=== PATIENT | female | born 1945 | race Caucasian/White ===

== ENCOUNTER 2016-12-15 16:10 | Inpatient (IN) | payer MEDICAID ==
[~2016-12-15] VITALS: Ht 154.9 cm; Wt 93.7 kg
--- NOTE | ~2016-12-15 | ECHO ---
Transthoracic Echocardiography Report (TTE) Demographics Patient Name CHANELLE CHAKRABORTY Date of Study 12/19/2016 L Patient Number [id number] Visit Number [id number] Date of 1945 Room Number G6327 Gender Female Number Age 71 year(s) Referring Life Assurance Representative Arnaud BURNETTT, Physician ROJELIO Katz Physician Interpreting Sil Azar Manager Sas Physician Supervising Ordering Christos Day MD, MD/MLP Physician Nurse Stress Hand Spray Operator Conclusions Contractility Score Summary Normal Left Ventricular contractility was noted. Summary Normal LV/RV size and systolic function. The estimated left ventricular ejection fraction is 65-70%. Mild concentric left ventricular hypertrophy. Diastolic assessment reveals Grade I diastolic dysfunction. No significant valvular abnormalities. Procedure Type of Study TTE procedure:2D Echocardiogram, M-Mode, Doppler , Color Doppler. Procedure Date Date: 12/19/2016 Start: 07:54 AM Study Location: Inpatient Portable Technical Quality: Adequate visualization Indications:CHF. Appropriate Use Criteria: 9 Patient Status: Routine HR: 85 bpm BP: 148/67 mmHg M-Mode/2D Measurements LV Diastolic Dimension: 3.32 cm LV Systolic Dimension: 1.72 cm LV Septum Diastolic: 1.32 cm LV PW Diastolic: 1.38 cm AO Root Dimension: 3.1 cm Cardiac Output: 6.16 l/min AV Cusp Separation: 1.4 cm RV Diastolic Dimension: 2.28 cm LA volume: 25 ml LVOT: 1.8 cm RV Base: 2.65 cm LVOT VTI: 28.5 cm RV Mid: 2.29 cm LV Stroke volume: 72.49 ml TDI-S': 23.5 cm/s Doppler Measurements AV Peak Velocity: 1.78 m/s MV Peak E-Wave: 0.78 m/s AV Peak Gradient: 12.67 mmHg MV Peak A-Wave: 1.11 m/s AV Mean Gradient: 8 mmHg MV E/A Ratio: 0.7 LVOT Peak Velocity: 1.3 m/s MV P1/2t: 85 msec PV Peak Velocity: 0.99 m/s E' Septal Velocity: 0.05 m/s PV Peak Gradient: 3.94 mmHg E' Lateral Velocity: 0.05 m/s A' Septal Velocity: 0.12 m/s A' Lateral Velocity: 0.18 m/s Findings Left Ventricle Mild concentric left ventricular hypertrophy. Diastolic assessment reveals Grade I diastolic dysfunction. Right Ventricle Normal right ventricle structure and function. Left Atrium Normal left atrial size. Right Atrium Normal right atrial size. IVC imaging is consistent with normal RA pressures. Mitral Valve Trivial mitral regurgitation by color Doppler. Aortic Valve The aortic valve is mildly sclerotic. Tricuspid Valve Normal tricuspid valve structure and function. Pulmonic Valve The pulmonic valve is not well visualized. Pericardial Effusion Trivial pericardial effusion. Pleural Effusion No evidence of pleural effusion. Contractility Score LV regional wall motion:(0-Non visualized 1-Normal 2-Hypokinesis 3-Akinesis 4-Dyskinesis 5-Aneurysm) Signature dtt: YO MELLO dtd: 12/19/16 0754 Physician Self Edit
--- NOTE | ~2016-12-15 | PUL ---
PATIENT'S NAME: CHANELLE CHAKRABORTY [facility] AGE: 71 Y [address] ROOM: [address] [address] LOCATION: GPCU ADMIT DATE: 12/15/2016 Pulmonary DISCHARGE DATE: 12/21/2016 FAMILY PHYSICIAN: HELENA PALOMO MD ATTENDING PHYSICIAN: Steven GUO NAME OF PROCEDURE: Nighttime Oximetry DATE OF PROCEDURE: December 20 to December 21, 2016 REASON FOR EXAM: Nocturnal hypoxemia RESULTS: The total recording time was 9 hours, 40 minutes, and 52 seconds, the total valid sampling time 9 hours, 35 minutes, 36 seconds. The highest pulse was 97 beats per minute, the lowest pulse was 71 beats per minute, and the mean pulse was 77 beats per minute. The highest SpO2 was 95%, lowest SpO2 was 68%, and the mean SpO2 was 83.6%. The time spent below 89% was 9 hours, 25 minutes, and 16 seconds which is 98.2%. The desaturation index was 7.3. PHYSICIAN INTERPRETATION: The patient meets Medicare criteria for nighttime oxygen category one. Thank you for allowing to participate in care of this patient. MD BLAISE MERINO/eryn /[id number] dtt: 01/01/17 1052 , Jose Alejandro Rincon. dtd: 12/26/16 1313
--- NOTE | ~2016-12-15 | ER ---
PATIENT'S NAME: CHANELLE CHAKRABORTY [facility] [place] AGE: 71 Y [address] ROOM: [place] [address] LOCATION: GPCU ADMIT DATE: 12/15/2016 ER/Outpatient Report DISCHARGE DATE: FAMILY PHYSICIAN: Mis Gore ATTENDING PHYSICIAN: Steven ARIAS CHIEF COMPLAINT: Possible pneumonia. HISTORY OF PRESENT ILLNESS: Ms Chakraborty intermittently is homeless. She states that she intermittently takes her medications for what appears to be depression and seizure disorder as well as hypothyroidism and hypertension. She has no pulmonary diagnoses that she is aware of. She notes that she has been coughing over the last week and just has really not been feeling well. Her friend saw her today and thought she looked worse than usual and brought her in. Other than feeling short of breath, she denies any other issues. Her legs are swollen, but they routinely do swell. No other issues from that standpoint. No other specific complaints. She has not really tried anything to make this better. She has not been taking her heart failure medications. No other issues for her. PAST MEDICAL HISTORY: As documented on the record and have been reviewed by me. SOCIAL HISTORY: As documented on the record and have been reviewed by me. MEDICATIONS: As documented on the record and have been reviewed by me. ALLERGIES: DOCUMENTED ON THE RECORD AND HAVE BEEN REVIEWED BY ME. REVIEW OF SYSTEMS: All systems were reviewed and negative except as noted in the HPI. PHYSICAL EXAMINATION: VITAL SIGNS: Blood pressure 194/80, pulse 116, respiratory rate is 20, temperature 99.2, SpO2 is 72% on room air, pain is 0/10. GENERAL: Age-appropriate female, in no obvious pain or distress who appears tired on the exam table. NEUROLOGIC: The patient is awake, she follows commands in all extremities. She does not have a clear speech, but it is not consistent with dysarthria, PATIENT'S NAME: CHANELLE CHAKRABORTY [facility] [place] AGE: 71 Y [address] ROOM: [place] [address] LOCATION: GPCU ADMIT DATE: 12/15/2016 ER/Outpatient Report DISCHARGE DATE: FAMILY PHYSICIAN: Mis Gore ATTENDING PHYSICIAN: Steven ARIAS friend notes her speech seems to be her normal. HEENT: Grossly normocephalic and atraumatic. Eyes are PERRL. Oropharynx is clear. No erythema or exudates. NECK: Supple. Trachea is midline. CHEST: Heart is tachycardic with no obvious murmurs. LUNGS: Crackles at the bases, but good air entry bilateral and diffuse wheezes throughout. ABDOMEN: Soft, nontender, and nondistended. No rebound or guarding. EXTREMITIES: Warm and well-perfused. No deformities. There is 2+ edema of the lower extremities to the knees. BACK: Normal to inspection and palpation. No CVA tenderness. SKIN: Very dirty, but dry and appears to be intact with no significant rashes. LABORATORY DATA AND X-RAYS: Chest x-ray with a small right pleural effusion. No clear infiltrates per my review. Radiology opinion pending. CT chest, PE protocol. Does not reveal any significant findings. Bilateral basilar infiltrates versus atelectasis. Blood gas; pH 7.35, pCO2 is 55, pO2 is 56 on 4 L. Lactate 0.8. Procalcitonin 0.07. CMS with no electrolyte abnormalities. Glucose 124, creatinine 0.8. GFR greater than 60. LFTs grossly unremarkable other than an alkaline phosphatase of 174, CK-MB, and troponin below detectable threshold. CRP is 12.6, free T4 and TSH 1.4 and 0.844 respectively. ProBNP 492. D-dimer is 1, white count is 14.2, hemoglobin 13.6, and platelets 260, INR is 1. EKG: Appears to be sinus tachycardia with left axis deviation, no acute ischemia. IMPRESSION: 1. Likely chronic obstructive pulmonary disease exacerbation. 2. Poor medication compliance. 3. At-risk living condition. EMERGENCY DEPARTMENT COURSE: The patient was seen and evaluated as above. Chief concern is for possible pneumonia, PE, or ACS based on current presentation. CHF was also evaluated. With her labs and exam as they are, with a negative chest CT, I think COPD exacerbation is most likely at this time. She did receive a DuoNeb, which helped some. Heart rates were downtrending. Blood pressure improved without any significant interventions. She was given Lasix, levofloxacin, and Solu- Medrol to help with those. She will be admitted to the Hospitalist Service for further evaluation and treatment of her severe hypoxia. A 4 L nasal cannula brought the patient to 90% plus or minus 1 or 2 percentage points at any given time. Dr. Arias is aware and will admit the patient. PATIENT'S NAME: CHANELLE CHAKRABORTY [facility] [place] AGE: 71 Y [address] ROOM: [place] [address] LOCATION: [facility] ADMIT DATE: 12/15/2016 ER/Outpatient Report DISCHARGE DATE: FAMILY PHYSICIAN: Mis Gore ATTENDING PHYSICIAN: Steven ARIAS MD DONAL CANSECO/nora /[id number] d: 12/16/16 0748 t: 12/16/16 0814, OUTPATIENT REPORT
--- NOTE | ~2016-12-15 | HP ---
PATIENT'S NAME: MYLENE [facility] AGE: 71 Y [address] ROOM: [place] [address] LOCATION: GPCU ADMIT DATE: 12/15/2016 History & Physical DISCHARGE DATE: FAMILY PHYSICIAN: Mis Gore ATTENDING PHYSICIAN: Steven GUO DATE OF SERVICE: CHIEF COMPLAINT: Shortness of breath. HISTORY OF PRESENT ILLNESS: The patient is a 71-year-old female with past medical history of CHF, seizure, hypertension, and tobacco use, who presents here with shortness of breath. The patient reports that for the past week or so she has been experiencing productive cough with yellow sputum with increased production of sputum, wheezing, and shortness of breath. The patient also reports of worsening lower extremity edema and dyspnea on exertion. The patient reports that she has a history of heart failure, but does not know what type it is. The patient also reports that she has subjective fever and chills. The patient denies chest pain, nausea, vomiting, abdominal pain, diarrhea, or constipation. The patient reports she lives by herself, does not have any connection with her family members and also reports that at times she lives on the street as a homeless. The patient reports of history of seizure since she was age 12. She reports that she is on disability due to her seizures. She does not remember her last seizure. MEDICAL HISTORY: 1. Tobacco use. 2. COPD. 3. Hypertension. 4. Seizure. 5. CHF. 6. Depression. 7. Obesity. SURGICAL HISTORY: 1. Hysterectomy. 2. Appendectomy. 3. Cholecystectomy. FAMILY HISTORY: Both parents had diabetes mellitus. SOCIAL HISTORY: PATIENT'S NAME: MYLENE [facility] AGE: 71 Y [address] ROOM: [address] [address] LOCATION: GPCU ADMIT DATE: 12/15/2016 History & Physical DISCHARGE DATE: FAMILY PHYSICIAN: Mis Gore ATTENDING PHYSICIAN: Steven GUO Lives alone. She is disabled. She has a long history of smoking and denies drinking. MEDICATIONS: The patient has a medication list with, 1. Phenobarbital. 2. Dilantin. 3. Lasix. 4. Synthroid. 5. Omeprazole. 6. Benazepril. However, there is no dosage. REVIEW OF SYSTEMS: All systems have been reviewed and are negative except for what I mentioned in the HPI. PHYSICAL EXAMINATION: VITAL SIGNS: Afebrile. Blood pressure 168/76, respiratory rate 20, heart rate 76, and saturating 93% on 4 L. GENERAL APPEARANCE: The patient is unkempt with significant odor. The patient is obese, lying on the bed, in no acute distress. HEAD: Normocephalic, atraumatic. EYES: Extraocular muscles intact. NECK: Positive JVD. NOSE: No nasal discharge. EARS: No ear discharge. CHEST: Bilateral rales up to mid lung and also mild expiratory wheezing. No rhonchi heard. HEART: Regular rate and rhythm. No murmur, rubs, or gallops. ABDOMEN: Soft, nontender, and nondistended. Bowel sounds present. SKIN: Warm to touch. EXTREMITIES: +1 pitting edema. MUSCULOSKELETAL: No joint effusion. Range of motion intact. SCIENCE CENTER DISPLAY BUILDER: Alert and oriented x3. Motor and sensory grossly intact. LABORATORY DATA: A pH 7.35, pCO2 55, and PO2 of 56. Sodium 142, potassium 4, and creatinine 0.8. White blood cell count of 14.2, hemoglobin 13.6, and platelets 260. D-dimer is positive. Chest x-ray shows cardiomegaly with vascular prominence. PATIENT'S NAME: CHANELLE CHAKRABORTY [facility] AGE: 71 Y [address] ROOM: [place] [address] [facility] ADMIT DATE: 12/15/2016 History & Physical DISCHARGE DATE: FAMILY PHYSICIAN: Mis Gore ATTENDING PHYSICIAN: Steven GUO CT chest and PE: Preliminary report per emergency department. No PE. EKG shows sinus rhythm, left axis deviation with possible right atrial dilation. ASSESSMENT AND PLAN: 1. Acute hypoxic respiratory failure. The patient is a 71-year-old female with past medical history of tobacco use, congestive heart failure, obesity, and hypertension, who presents here with shortness of breath. On initial evaluation, the patient was found to have new oxygen demand. The patient's initial oxygenation in the ED with O2 saturation in the 70s on room air. Initial ABG shows PO2 of 56, pH of 7.35, and pCO2 of 55. Chest x-ray shows vascular prominence and cardiomegaly. On physical examination, the patient was found to have rales and also expiratory wheezing. The patient also have JVD and pitting edema. A D-dimer is positive; however, CT PE prelim report is negative for PE. Etiology most likely secondary to chronic obstructive pulmonary disease exacerbation and decompensated heart failure. We will start the patient on DuoNeb, steroids, and Levaquin. We will also start the patient on Lasix 40 mg IV t.i.d., strict I's and O's, and daily weight with fluid restriction. We will also start the patient on low-sodium diet. We will also acquire echocardiogram to further evaluate heart structure. 2. Acute chronic obstructive pulmonary disease exacerbation. See problem #1. 3. Diastolic heart failure. EF not known. We do not have current echocardiogram. For treatment, please see problem #1. 4. Depression. The patient reports a history of depression and suicidal thoughts in the past. Denies attempts. We will have Psychiatry consult. 5. Tobacco use. Discussed with the patient about tobacco cessation, spent greater than 3 minutes, but less than 10 minutes. 6. Seizure disorder. The patient is currently taking Dilantin and phenobarbital, does not remember the last time she had seizure. We will have seizure precaution and have Ativan p.r.n. Currently, we do not have the patient's medications, we will acquire Dilantin and phenobarbital levels. As soon as we get the patient's medications, we will restart the patient's medication. 7. Obesity, ongoing. 8. Gastrointestinal prophylaxis, on PPI. 9. Deep venous thrombosis prophylaxis, on Lovenox. 10. Problem with homelessness. We will consult Social Work. I have personally reviewed the patient's medical record including but not limited to, blood work and radiology report. Total time spent with the patient is greater than 70 minutes, more than 50% of time spent in direct patient care and patient consultation. Case was reviewed with the patient and PATIENT'S NAME: CHANELLE CHAKRABORTY [facility] AGE: 71 Y [address] ROOM: [place] [address] LOCATION: GPCU ADMIT DATE: 12/15/2016 History & Physical DISCHARGE DATE: FAMILY PHYSICIAN: Mis Gore ATTENDING PHYSICIAN: Steven GUO nursing staff. Questions were answered to the patient's satisfaction. The patient's code status on admission, full code. MD JORDAN NAVARRO/nora /[id number] D: [id number] T: [id number] HISTORY & PHYSICAL
--- NOTE | ~2016-12-15 | DS ---
PATIENT'S NAME: MYLENE [facility] AGE: 71 Y [address] ROOM: [place] [address] LOCATION: GPCU ADMIT DATE: 12/15/2016 Discharge Summary DISCHARGE DATE: 12/21/2016 FAMILY PHYSICIAN: HELENA PALOMO MD ATTENDING PHYSICIAN: Steven GUO PRIMARY DIAGNOSES: 1. Wvwin-ti-uvibvvy hypoxic and hypercapnic respiratory failure. 2. Chronic obstructive pulmonary disease exacerbation. 3. Ydphh-jg-cqcvuwx diastolic congestive heart failure. 4. Pulmonary nodules. 5. Adrenal nodules. 6. Essential hypertension. 7. Seizure disorder. 8. Generalized weakness. 9. Moderate protein-calorie malnutrition. OPERATIONS/PROCEDURES: CT scan per PE protocol performed 12/15/2016 demonstrated no PE, but pulmonary nodules indeterminate were noted. Bilateral adrenal nodules also noted. Recommend followup CT in 3 months. HISTORY OF PRESENTING ILLNESS/REASON FOR ADMISSION: Please refer to the H and P dictated 12/15/2016. HOSPITAL COURSE: The patient was admitted to the hospital as noted above with a presumptive diagnosis of vxvww-uh-odnyfam hypoxic hypercapnic respiratory failure. Imaging studies revealed pulmonary nodules as outlined above. Clinical followup and repeat CT scan were recommended. She received aggressive supportive care and supplemental oxygen. She received attention to pulmonary hygiene including nebulizers. She was placed on broad- spectrum antibiotic therapy with levofloxacin. Her cultures remained negative over the course of her hospital stay. Her clinical condition slowly improved. Symptomatically, she was essentially back at her baseline. She continued to require supplemental oxygen; however, 2 L at rest and 2 L with exertion. Respiratory Therapy did qualify her for oxygen. Her home situation was suboptimal. It was noted that she lived in a trailer with virtually no plumbing and limited electricity. Social Work was involved in assisting with coordination of care and discharge planning. Adult Protective Services were contacted by Care Management in anticipation of her discharge home. After discussing discharge plans with the patient, she agreed to go home with a friend who is also a neighbor. The home environment there PATIENT'S NAME: MYLENE [facility] AGE: 71 Y [address] ROOM: [place] [address] LOCATION: GPCU ADMIT DATE: 12/15/2016 Discharge Summary DISCHARGE DATE: 12/21/2016 FAMILY PHYSICIAN: HELENA PALOMO MD ATTENDING PHYSICIAN: Steven GUO had full amenities including plumbing and electricity. It was decided that she would need home oxygen as outlined above. She was counseled extensively to quit smoking and remained in the contemplative phase. She was instructed strictly no smoking with the oxygen device in place. DISCHARGE INSTRUCTIONS: 1. Diet: Cardiac prudent as tolerated, 1500 mL per day, fluid restriction. 2. Activity: As tolerated, ambulate only with a walker, and supplemental oxygen. MEDICATIONS: 1. Levofloxacin 750 mg p.o. daily x5 more days. 2. Ilotycin ointment applied to both eyes daily. 3. Lexapro 10 mg p.o. daily. 4. Lasix 40 mg p.o. daily. 5. Levothyroxine 75 mcg p.o. daily. 6. Benazepril 20 mg p.o. daily. 7. Nicotine patch 21 mg apply and change daily, do not smoke. 8. Nystatin powder applied topically b.i.d. x5 more days. 9. Omeprazole 20 mg p.o. daily. 10. Phenobarbital 32.4 mg p.o. b.i.d. and 64.8 mg at h.s. 11. Dilantin 100 mg p.o. b.i.d. and 200 mg p.o. q.h.s. 12. MiraLAX 17 g p.o. daily. 13. Prednisone tapering course 20 mg p.o. daily x2 more days then 10 mg p.o. daily then 5 mg p.o. daily each x3 days. 14. DuoNeb per nebulizer 4 times a day. 15. VESIcare 10 mg p.o. q.h.s. FOLLOW UP: She will follow up with her primary care provider, Helena Palomo, in 5-7 days. She will have repeat CT scan of the chest to address pulmonary nodules and adrenal nodules in 3 months. CONDITION ON DISCHARGE: Fair. Total time spent on discharge process was 45 minutes. MD BRITTANEY ODELL/nora /[id number] d: 12/22/16 0559 t: 01/04/17 1812, DISCHARGE SUMMARY
[2016-12-15 16:52] LABS: BICARBONATE 30.4 mmol/L (18.0-23.0); LACTATE 0.8 mEq/L (0.50-1.60); PCO2 55 mmHg (35-45); PO2 56 mmHg (80-90)
[2016-12-15 16:58] LABS: BASOPHIL % 0.2 %; EOSINOPHIL % 0.3 %; HEMATOCRIT 42.8 % (33.0-46.0); HEMOGLOBIN 13.6 g/dL (10.0-15.0); IMMATURE GRANULOCYTE # 0.1 K/uL (0.0-0.3); IMMATURE GRANULOCYTE % 0.4 %; LYMPHOCYTE # 1.4 K/uL (0.8-4.0); LYMPHOCYTE % 9.5 %; MCH 28.1 pg (27.0-34.0); MCHC 31.8 gm/dL (32.0-36.5); MCV 88.4 fl (83.0-98.0); MONOCYTE # 1.3 K/uL (0.0-1.0); MPV 9.5 fl (9.4-12.4); NEUTROPHIL # (ANC) 11.5 K/uL (1.8-7.8); NEUTROPHIL % 80.6 %; NRBC % 0 /100WBC (0-0.00); PLATELET COUNT 260 K/uL (150-450); RBC 4.84 M/uL (3.50-5.50); RDW-CV 14.6 % (11.9-14.6); WBC 14.2 K/uL (4.0-11.0)
[2016-12-15 17:09] LABS: INR - (THERAPEUTIC) 1.01 (0.92-1.07); PROTIME 10.6 SECONDS (9.8-11.4); PTT 28 SECONDS (25-32)
[2016-12-15 17:16] LABS: ALBUMIN 2.8 gm/dL (3.5-5.0); ALK PHOS 174 IU/L (33-138); ALT 64 IU/L (12-78); AST 39 IU/L (10-40); BLOOD UREA NITROGEN 16 mg/dL (6-24); CALCIUM 8.4 mg/dL (8.5-10.5); CHLORIDE 108 mMol/L (96-110); CO2 27 mMol/L (22-32); CREATININE 0.8 mg/dL (0.5-1.1); ESTIMATED GFR (MDRD EQUATION) > 60; SODIUM 142 mMol/L (135-145); TOTAL BILIRUBIN 0.4 mg/dL (0.0-1.5); TOTAL PROTEIN 7.2 g/dL (6.0-8.4)
[2016-12-15] MEDS ORDERED: PHENOBARBITAL32.4 MG PO (21:13)
[2016-12-15] MEDS ORDERED: LASIX40 MG PO (21:13)
[2016-12-15] MEDS ORDERED: DILANTIN100 MG PO (21:13)
[2016-12-15] MEDS ORDERED: LEVOTHROID(SYN75 MCG PO (21:14)
[2016-12-15] MEDS ORDERED: LOTENSIN20 MG PO (21:14)
[2016-12-15] MEDS ORDERED: VESICARE10 MG PO (21:14)
[2016-12-15] MEDS ORDERED: PRILOSEC20 MG PO (21:14)
--- NOTE | 2016-12-16 02:24 | NUR ---
PATIENT ARRIVES FROM THE ER TO PCU AT 1945. PATIENT IS ALERT AND ORIENTED AND TALKATIVE. O2 PER NC IN PLACE AT 5LPM. BRIDGE CARPENTER IS APPLIED. PATIENT IS VERY UNCLEAN. SHE IS PLEASANT AND COOPERATIVE. IT IS REPORTED THAT THE PATIENT HAS HAD A COUGH OVER THE LAST WEEK WITH WORSENING SHORTNESS OF AIR. SHE WAS TAKEN TO THE ER WITH FAMILY MEMBERS. ALATORRE WAS PLACED AFTER ARRIVAL TO THE FLOOR. PATIENT VERBALIZES CURRENT DEPRESSION BUT REPORTS SHE DOES NOT WANT A PLANE AND WOULD BE TOO CHICKEN.
--- NOTE | 2016-12-16 05:42 | NUR ---
Significant Event: PATIENT ADMITTED THORUGH THE ER FOR HYPOXIA. PATIENT ADMITTED WITH PNEUMONIA. SHE IS CURRENTLY HOMELESS. STOPPED TAKING LASIX A WEEK AGO. SHOWERED LAST PM. ALATORRE PLACED FOR ACCURATE I&O, SEIZURE PREAUTIONS. PATIENT IS ALERT AND ORIENTED. BILATERAL GROINS ARE EXCORIATED. NYSTATIN BEING APPLIED. ORAL THRUSH BEING TREATED WELL. Follow up:
[2016-12-16] MEDS ORDERED: PHENOBARBITAL32.4 MG PO (11:24)
[2016-12-16] MEDS ORDERED: DILANTIN100 MG PO (11:26)
[2016-12-16] MEDS ORDERED: LEXAPRO20 MG PO (11:27)
[2016-12-16] MEDS ORDERED: ILOTYCIN1 GM OPHTH (11:28)
--- NOTE | 2016-12-16 18:49 | NUR ---
Significant Event: A/O X 3. SOME ODD REMARKS AT TIMES. AFEBRILE. HR SR IN 60-80'S. SBP 125-147. SATS 91% ON 3 LPM, NC. REPOSITIONS SELF. GOOD APPETITE. LASIX GIVEN WITH GOOD URINE OUTPUT. Follow up: CONT. PLAN OF CARES.
[2016-12-17 03:17] LABS: BASOPHIL % 0.2 %; EOSINOPHIL % 0.1 %; HEMATOCRIT 41.1 % (33.0-46.0); HEMOGLOBIN 13.1 g/dL (10.0-15.0); IMMATURE GRANULOCYTE # 0.1 K/uL (0.0-0.3); IMMATURE GRANULOCYTE % 0.6 %; LYMPHOCYTE # 1.3 K/uL (0.8-4.0); LYMPHOCYTE % 10.2 %; MCH 28.1 pg (27.0-34.0); MCHC 31.9 gm/dL (32.0-36.5); MCV 88.2 fl (83.0-98.0); MONOCYTE # 0.6 K/uL (0.0-1.0); MONOCYTE % 4.9 %; MPV 9.8 fl (9.4-12.4); NEUTROPHIL # (ANC) 10.5 K/uL (1.8-7.8); NRBC % 0.2 /100WBC (0-0.00); PLATELET COUNT 286 K/uL (150-450); RBC 4.66 M/uL (3.50-5.50); RDW-CV 14.5 % (11.9-14.6); WBC 12.5 K/uL (4.0-11.0)
[2016-12-17 03:31] LABS: ANION GAP 11.5 (10.0-19.0); CALCIUM 8.4 mg/dL (8.5-10.5); POTASSIUM 4.5 mMol/L (3.7-5.1)
--- NOTE | 2016-12-17 05:50 | NUR ---
Significant Event:VSS.3L NC. PT DENIES PAIN. PT STOOD AT BEDSIDE. ALATORRE INTACT. COOPERATIVE WITH CARES. PT STATES SHE IS WORRIED ABOUT HER DOG. SLEPT INTERMITENTLY THIS SHIFT. Follow up:CONT TO MONITOR
--- NOTE | 2016-12-17 07:27 | NUR ---
PT IS A SMOKER, WITH PNEUMONIA, DYSPNEA, FOUND ON ROOM AIR SAT 80 REPLACED ON 2LPM. WE WILL CONTINUE Q4 AEROSOLS. PT'S LIVING ARRANGEMENTS EQUALS A MARGINAL DETENTION WITHOUT WATER, HEATER, ELECTRICITY. DR FELICE LOWE MGMT NOTIFIED
--- NOTE | 2016-12-17 16:48 | NUR ---
Significant Event: A/O X 3. PT. ABLE TO SEE HER DOG TODAY AND WAS VERY HAPPY AND SATISFIED THAT HE WAS OK. DR. VÁSQUEZ (PSYCHIATRIST) SEEN TODAY. NOTE WRITTEN. AFEBRILE. HR SR IN 80'S. SBP 130-140'S. SATS 94% ON 3 LPM. DESATS TO 80'S ON ROOM AIR. CONT. ON SOLUMEDROL AND ANTIX. UP IN CHAIR WITH ONE ASSIST TODAY. PT/OT TO START EVALUATION/TREAT. WEAN OFF 02 TO KEEP SATS 88-95%. Follow up : DILANTIN LEVEL AND OTHER LABS IN A.M. CM NEEDS TO WORK ON PLACEMENT. CONT. TO MONITER RESP. STATUS.
--- NOTE | 2016-12-18 04:35 | NUR ---
Significant Event: VSS.2-4L NC. coarse and wheezy. productive cough. Pt preferred to sleep in chair. Delgadillo intact. Pt up to bathroom 1a. Pt eager to return home. Pt denies pain. Follow up:cont w/plan of care
[2016-12-18 06:04] LABS: BASOPHIL % 0.3 %; EOSINOPHIL % 0.2 %; HEMATOCRIT 43.5 % (33.0-46.0); HEMOGLOBIN 13.6 g/dL (10.0-15.0); IMMATURE GRANULOCYTE # 0.1 K/uL (0.0-0.3); IMMATURE GRANULOCYTE % 0.9 %; LYMPHOCYTE # 1.5 K/uL (0.8-4.0); LYMPHOCYTE % 13.1 %; MCH 27.9 pg (27.0-34.0); MCHC 31.3 gm/dL (32.0-36.5); MCV 89.3 fl (83.0-98.0); MONOCYTE # 0.7 K/uL (0.0-1.0); MONOCYTE % 5.8 %; MPV 9.2 fl (9.4-12.4); NEUTROPHIL # (ANC) 9.2 K/uL (1.8-7.8); NEUTROPHIL % 79.7 %; NRBC % 0 /100WBC (0-0.00); PLATELET COUNT 307 K/uL (150-450); RBC 4.87 M/uL (3.50-5.50); RDW-CV 14.6 % (11.9-14.6); WBC 11.5 K/uL (4.0-11.0)
[2016-12-18 06:20] LABS: ANION GAP 10.6 (10.0-19.0); BLOOD UREA NITROGEN 26 mg/dL (6-24); CALCIUM 8.3 mg/dL (8.5-10.5); CHLORIDE 103 mMol/L (96-110); CO2 30 mMol/L (22-32); CREATININE 0.8 mg/dL (0.5-1.1); ESTIMATED GFR (MDRD EQUATION) > 60; POTASSIUM 4.6 mMol/L (3.7-5.1); SODIUM 139 mMol/L (135-145)
--- NOTE | 2016-12-18 17:45 | NUR ---
Significant Event: A/O X 3. MAKES ODD COMMENTS AT TIMES. AFEBRILE. HR SR IN 70-90'S. SBP 130-150. SATS 91-95% ON 2 LPM NC. MOUTH BREATHER AT REST AND DESATS 86%. LANDRY LEWIS'D. VOIDED X 1. SMALL BM. DECREASED SOLU-MEDROL DOSAGE. Follow up: CONT. TO MONITER RESP. STATUS.
[2016-12-19 03:58] LABS: BASOPHIL # 0.1 K/uL (0.0-0.2); BASOPHIL % 0.4 %; EOSINOPHIL % 0.1 %; HEMATOCRIT 45.2 % (33.0-46.0); HEMOGLOBIN 14.1 g/dL (10.0-15.0); IMMATURE GRANULOCYTE # 0.2 K/uL (0.0-0.3); IMMATURE GRANULOCYTE % 1.3 %; LYMPHOCYTE # 1.8 K/uL (0.8-4.0); LYMPHOCYTE % 14.8 %; MCH 27.9 pg (27.0-34.0); MCHC 31.2 gm/dL (32.0-36.5); MCV 89.5 fl (83.0-98.0); MONOCYTE # 0.6 K/uL (0.0-1.0); MPV 9.3 fl (9.4-12.4); NEUTROPHIL # (ANC) 9.6 K/uL (1.8-7.8); NEUTROPHIL % 78.4 %; NRBC % 0 /100WBC (0-0.00); PLATELET COUNT 300 K/uL (150-450); RBC 5.05 M/uL (3.50-5.50); RDW-CV 14.6 % (11.9-14.6); WBC 12.2 K/uL (4.0-11.0)
--- NOTE | 2016-12-19 04:59 | NUR ---
Significant Event: A&O.COOPERATIVE WITH CARES. VSS.2L NC. PT DENIES PAIN, SLEPT IN RECLINER. DECREASE IN IV SOLUMEDROL. ORAL LASIX. UP TO BATHROOM SBA. Follow up: CONT TO MONITOR, PLACEMENT
--- NOTE | 2016-12-19 13:00 | NUR ---
Introduced self and role of care management to pt. She states she has her own trailer house but she states it's not really livable and [facility] has been involved. She states her neighbor at this time is taking care of her dog. She states Katiana with [place] [id number] has been working with her to get low income apartment here in [place] or [place]. I asked about AA she states they were really not any help to her. I did tell her I called [employer] and that she is approved for [facility] (cleaning, caregivers, laundry, food prep, etc) also she already gets heating and enery assistance from [facility] as well. Pt states the pipes broke several years ago so does not have running water she does spit baths, her furnace does not work and only a few outlets and with that she uses electric heater and a fan, she gets foods stamps, she does drive and gets her meds filled and see's DR Conde. I did discuss safe discharge plans and that home is not a safe plan. I mentioned [facility], long-term, or skilled care to get back on her feet, but really she is independent at this time so far. I then asked what her plan was for discharge and she was hoping to stay with her friend Verena [address] phone [phone]. I asked about long-term and refuses because wants her dog and states no to [facility] because of that as well and has been there before. She states she has been at several other nursing homes in [place] and [facility] being the last. I did call and inquired at with [facility] but do not think she will qualify. I asked if it would be ok to give her a call and she stated yes. I then called called Verena and discussed the situation. She does have her dog and she is aware about her living environment and she stays with her on and off and one time for about 3 months. She also has been helping pt and is aware of Katiana at [place] [id number] and [facility] as well. Per Verena she is also good at taking her meds and caring for herself it is just her living arangement. I did tell her pt stated something about staying with her and yes Verena states she can stay with her until something comes up. I asked about [facility] and coming in her home and she states that would be fine as well. They are aware of the food pantry and [employer] [facility] because pt does go there for assistance as well. I did make referral to [facility] and they will see if they can see her this week if not [facility], Annie has the information as well. I did update pt along with Dr Acharya about friend letting her stay there. I then got a call from Katiana and she has been helping her out with everything and she seems to trust her. She is number 6 on the housing list and will give them a call again and also can be in touch with Verena as well. She is aware she does not have a phone either and will work with pt on this as well. I will most likely make a APS referral on dc to let [facility] know what the plan is.
--- NOTE | 2016-12-19 15:21 | NUR ---
A&O. SBA. SBP 130'S-150'S. HR NS 70'S-90'S. AFEBRILE. 1-2L NC. NO C/O PAIN. LS CORSE. CSM WNL. VOIDS PER BR. SMALL HARD BM TODAY. [place]. 1500 FLUID RESTRICTION. SKIN IS UNCLEAN REF HYGINE CARES.PLAN IS WORKING ON PLACEMENT?
--- NOTE | 2016-12-20 04:28 | NUR ---
A&O. SBA with GB/W. VSS. Afebrile. 2 ltr O2 over night. Slept in chair for several hours before wanting to move to the bed. Wears brief. 1500ml fluid restriction- had 360 in this shift. SOLOMON. Family brought her dog in to visit [facility]. No c/o pain. Care management on case.
--- NOTE | 2016-12-20 12:02 | NUR ---
I did update nursing Deysi that pt will be going home with a friend and staying with her. I spoke with pt and she still is planning on staying with Verena and I mentioned the [facility] for continued therapy and nursing and she is ok with this. [facility] can not get into the home till the weekend. I will then plan on setting it up with [facility]. APS called with update.
--- NOTE | 2016-12-20 14:22 | NUR ---
A-SCREENED D/T LOS HT: 61 IN. WT: 94.2 KG. IBW: 48 KG. BMI: 39.3 LABS REVIEWED: BUN/CORE MOUNTER 26/0.8, ALB 2.8, CRP 12.60 MEDS: MIRALAX, PRN BOWEL MEDS, LASIX, PHENOBARBITAL, DILANTIN, SANCTURA, LEVAQUIN, PROTONIX, ZOFRAN, DELTASONE DIET RX: CARDIAC/2-3 GM NA. PO INTAKE 75-100% EST NUTR NEEDS: [id number] KCALS (15-20 KCALS/KG) 72-96 GMP PROTEIN (1.5-2.0 GM/KG IBW) 1 ML FLUID/KCAL D-NOT AT NUTRITION RISK; NO NUTRITION DX IDENTIFIED I-CONTINUE W/CURRENT DIET RX M/E-WILL ASSIST NEEDED
--- NOTE | 2016-12-20 18:34 | NUR ---
A&O. [place]. SLOW TO RESPOND. SBA. HTN 110'S-160'S. HR 70'S. AFEBRIAL. 1-2L02NC. NO C/O PAIN. LS DIM. BS ACTIVE. SM BM 12/19. PLAN IS TREND OX TONIGHT THEN HOME TOMORROW. INT IV ATBX SWITCH TO PO? PRED TAPER. HOME TO FRIENDS HOUSE WHEN DC
--- NOTE | 2016-12-21 05:06 | NUR ---
Patient A/Ox3. VSS on 1L. Up standby assist with gaitbelt. Lungs course, SOB with activity. Trend ox done last night. Bowel sounds present, SM BM this shift. IV to Rt forearm saline locked. No complaints. Incont. of urine. Wants to go home today to get her dog.
--- NOTE | 2016-12-21 11:11 | NUR ---
[facility] notified yesterday and will note but not enough to follow up on with the plan to stay with friend.
--- NOTE | 2016-12-21 11:50 | NUR ---
Introduced self and purpose of heart healthy education and care transitions. Calendar given, information reviewed, verbalized understanding.
--- NOTE | 2016-12-21 14:36 | NUR ---
I did call pt's friend Verena and she states she is aware pt maybe ready to come home today with her. SHe is fine with [facility] and explained it would be thru [facility]. I did tell her she will need to be on oxygen and she understands and is fine with this. I told her she would have a concentrator and also a portable as well. I told her nursing would let her know when she is being discharged.
--- NOTE | 2016-12-21 15:41 | NUR ---
I spoke with pt again today and explained Verena is still planning on her staying with her. She was wondering about a walker and I told her we could give her a script but do not know if she needs it because she was carrying out of the bathroom but told her she can take the script to any dme facility. She stated she may even be able to find hers. I told her no smoking and she stated Verena does but she smokes outside and I explained they will need to continue to do this. I faxed dc orders to [facility]. Will continue to follow.
--- NOTE | 2016-12-21 16:44 | NUR ---
Significant Event: Alert and oriented X 3. O2 by nasal cannula at 1.5 L. SBP 110's, 120's and 130's. HR 70's and 80's. Peripheral IV to right wrist saline locked. Patient's dismissal paperwork done, waiting for transportation. Will be going home with a friend and staying with her. Pleasant and coopertative with cares. Follow up:
[2016-12-21] MEDS ORDERED: MYCOLOG OINTMEN15 GM TOP (17:57)
[2016-12-21] MEDS ORDERED: NICODERM CQ1 EAC1 TRANS (18:00)
[2016-12-21] MEDS ORDERED: MIRALAX17 GM PO (18:02)
[2016-12-21] MEDS ORDERED: DELTASONE20 MG PO (18:03)
[2016-12-21] MEDS ORDERED: DUONEB INH (18:06)
[2016-12-21] MEDS ORDERED: LEVAQUIN750 MG PO (18:07)
--- NOTE | 2016-12-21 20:52 | NUR ---
Pt dismissed from [facility] @ 2019. Was transported from facility by private car. Patient was given prescription med list and home O2 equipment. Pt was informed and given a written reminder for follow up appointment at [facility]. IV was dc'd and vitals were done. BP 178/95, 98.3 temp, 89 hr, 98% 1L, 16 resps.
--- NOTE | 2016-12-21 22:27 | NUR ---
At 2114: Spoke with Patient's friend (caregiver) on the phone and informed the friend to make sure the home oxygen settings are on 2L night and day. Patient did not remember how much oxygen she is required to wear. Friend also said that the patient left her glasses in the bathroom. Friend will picker operator the glasses in the morning.
== END 2016-12-21 20:56 | disposition disaster alternative care site (69) | DRG 291 ==
LOC: GMED 16:10 → GPCU 18:31
PROVIDERS: Emergency Medicine; Family Medicine; ADMIT Internal Medicine
PROC: 3E0F7GC Introduction of Other Therapeutic Substance into Respiratory Tract, Via Natural or Artificial Opening (ICD-10-PCS; 2016-12-15)
PROC: B246ZZZ Ultrasonography of Right and Left Heart (ICD-10-PCS; principal; 2016-12-19)
DX: I50.33 Acute on chronic diastolic (congestive) heart failure (principal); J96.01 Acute respiratory failure with hypoxia; E44.0 Moderate protein-calorie malnutrition; J44.1 Chronic obstructive pulmonary disease with (acute) exacerbation; I11.0 Hypertensive heart disease with heart failure; E03.9 Hypothyroidism, unspecified; E66.9 Obesity, unspecified; G40.909 Epilepsy, unspecified, not intractable, without status epilepticus; Z90.49 Acquired absence of other specified parts of digestive tract; Z90.710 Acquired absence of both cervix and uterus; Z68.39 Body mass index [BMI] 39.0-39.9, adult; Z72.0 Tobacco use; F32.9 Major depressive disorder, single episode, unspecified
CPT/HCPCS: G0237; G0424; J1650; J1940; J1956; J2001; J2920; J2930; J7050; J7512; Q9967

== ENCOUNTER → 2017-01-17 | Outpatient (CLI) | payer MEDICAID ==
[~2017-01-17] MED LIST: DELTASONE20 MG PO; DILANTIN100 MG PO; DUONEB INH; ILOTYCIN1 GM OPHTH; LASIX40 MG PO; LEVAQUIN750 MG PO; LEVOTHROID(SYN75 MCG PO; LEXAPRO20 MG PO; LOTENSIN20 MG PO; MIRALAX17 GM PO; MYCOLOG OINTMEN15 GM TOP; NICODERM CQ1 EAC1 TRANS; PHENOBARBITAL32.4 MG PO; PRILOSEC20 MG PO; VESICARE10 MG PO
--- NOTE | ~2017-01-17 | PUL ---
PATIENT'S NAME: CHANELLE CHAKRABORTY [facility] AGE: 71 Y [address] ROOM: [place] [id number] LOCATION: [facility] ADMIT DATE: 01/17/2017 Pulmonary DISCHARGE DATE: FAMILY PHYSICIAN: Angel Conde MD ATTENDING PHYSICIAN: Samantha Corley NAME OF PROCEDURE: Pulmonary Function Test DATE OF PROCEDURE: January 16, 2017 TECH: Viviana, ACCREDITATION MANAGER REASON FOR EXAM: COPD RESULTS: 1. FVC was 1.76 liters which is 66% of predicted and low, FEV1 was 1.29 liters which is 64% of predicted and low, and FEV1/FVC was 74% and normal. The flow volume curve did not reveal any significant airflow limitation. After bronchodilator administration FVC decreased to 1.67 liters and FEV1 decreased to 1.27 liters. FEV1/FVC was 76%. 2. DLCO and adjusted DLCO were 10 which is 45% of predicted and low. 3. Total lung capacity was 5 liters which is 118% of predicted and normal, and residual volume was 2.8 liters which is 168% of predicted and high. 4. pH was 7.39, PCO2 was 51, PO2 was 63 on while on room air. The base excess was 4.9. PHYSICIAN INTERPRETATION: The patient has no airflow limitation and no significant bronchodilator response. Her diffusion capacity is moderately low. There is evidence of air trapping on lung volumes. She has respiratory acidosis with adequate metabolic compensation and no hypoxia at rest on room air. MD IAN ARMSTRONG/eryn /[id number] dtt: 01/24/17 1101 , AMPARO ROLAND dtd: 01/19/17 1025
--- NOTE | ~2017-01-17 | PUL ---
PATIENT'S NAME: CHANELLE CHAKRABORTY [facility] AGE: 71 Y [address] ROOM: [place] [address] LOCATION: [facility] [[email or web address] ADMIT DATE: 01/17/2017 Pulmonary DISCHARGE DATE: FAMILY PHYSICIAN: Angel Conde MD ATTENDING PHYSICIAN: Samantha Corley NAME OF PROCEDURE: Six Minute Walk Test DATE OF PROCEDURE: January 17, 2017 TECH: FAVIOLA Michelle REASON FOR EXAM: COPD RESULTS: The test was performed on room air. The patient walked for 1000 feet at a pace of 1.89 miles/hour. Her oxygen saturation was 93% at the beginning of the test, then dropped to the lowest of 88% during the test, and was 92% after the test. She had appropriate increases in her heart rate and blood pressure remained stable. Her perceived dyspnea was 5/10 on the Paulie scale. She had no periods of rest. PHYSICIAN INTERPRETATION: The patient has mild limitation in her exercise capacity with significant desaturations and minimal hypoxia while on room air during exercise. MD IAN ARMSTRONG/eryn /[id number] dtt: 01/24/17 1058 , AMPARO ROLAND dtd: 01/19/17 1021
[2017-01-17 09:34] LABS: BICARBONATE 30.9 mmol/L (18.0-23.0); PCO2 51 mmHg (35-45); PO2 63 mmHg (80-90)
== END | disposition disaster alternative care site (69) ==
LOC: GRTH 08:58
PROVIDERS: Nurse Practitioner
DX: J44.9 Chronic obstructive pulmonary disease, unspecified (principal); E87.2 Acidosis; R09.02 Hypoxemia